=== PATIENT | female | born 1980 | race Hispanic/Latino ===

== ENCOUNTER 2024-07-15 20:57 | Emergency (ER) | payer SELFPAY ==
[~2024-07-15] VITALS: Ht 154.9 cm; Wt 65.8 kg
[2024-07-15] MEDS ORDERED: CEPHALEXIN500 MG PO (21:50)
[2024-07-15] MEDS ORDERED: AMBIEN5 MG PO (21:50)
[2024-07-15 21:59] VITALS: PULSE 90; RESP 16; TEMP 98.3; O2SAT 100
== END 2024-07-15 22:03 | disposition home or self-care (01) ==
LOC: ER 21:05
DX: S91.312A Laceration without foreign body, left foot, initial encounter (principal); W25.XXXA Contact with sharp glass, initial encounter; Y92.89 Other specified places as the place of occurrence of the external cause; F41.9 Anxiety disorder, unspecified; F32.A Depression, unspecified; F17.210 Nicotine dependence, cigarettes, uncomplicated
CPT/HCPCS: 99284